=== PATIENT | male | born 1950 | race Caucasian/White ===

== ENCOUNTER 2024-03-25 22:26 | Emergency (ER) | payer MEDICARE ==
[~2024-03-25] VITALS: Ht 172.7 cm; Wt 76.0 kg
[2024-03-25 22:32] VITALS: TEMP 98.4; O2SAT 98
[2024-03-25] MEDS: OXYMETAZOLINE HCL NASAL SPRAY 15ML BOTHNSTRLS STA (23:02)
[2024-03-25] MEDS: SODIUM CHLORIDE 0.9% 1,000 ML IV ONE (23:03)
[2024-03-25 23:24] LABS: CHLORIDE 106 mEq/L (98-107); SODIUM 141 mEq/L (136-145)
[2024-03-25] MEDS: LIDOCAINE HCL/EPINEPHRINE 1%-EPI 1:100,000 20ML VIAL INFIL NR (23:24)
[2024-03-25] MEDS: TRANEXAMIC ACID 1,000MG/10ML TP ONE (23:24)
[2024-03-25 23:25] LABS: BASOPHILS % 0.7 % (0.0-2.0); CALCIUM 9.5 mg/dL (8.7-10.4); CARBON DIOXIDE 26 mEq/L (21-32); EOSINOPHILS % 2.1 % (0.0-5.0); HEMATOCRIT. 37.2 % (42.0-52.0); HEMOGLOBIN. 12.9 g/dL (14.0-18.0); LYMPHOCYTES % 34.5 % (20.0-50.0); MEAN CORPUSCULAR HEMOGLOBIN 30.6 pg (28.0-32.0); MEAN CORPUSCULAR HGB CONC 34.8 g/dL (31.0-37.0); MEAN CORPUSCULAR VOLUME 88.1 fL (80.0-94.0); MEAN PLATELET VOLUME 7.5 fl (7.4-10.4); MONOCYTES % 7.5 % (2.0-8.0); NEUTROPHILS % 55.2 % (40.0-76.0); PLATELET 309 x1000/uL (130-400); RED BLOOD CELL COUNT 4.22 mill/uL (4.7-6.1); RED CELL DISTRIBUTION WIDTH 12.9 % (11.6-14.6); WHITE BLOOD COUNT 6.5 x1000/uL (4.5-11.0)
[2024-03-25 23:29] LABS: INR 0.9; PARTIAL THROMBOPLASTIN TIME 24.1 sec (23.4-31.0); PROTHROMBIN TIME 10.3 sec (9.6-11.0)
[2024-03-25 23:30] LABS: CREATININE 0.9 mg/dL (0.6-1.3); GLUCOSE 124 mg/dL (70-105); UREA NITROGEN BLOOD 23 mg/dL (9-23)
[2024-03-26 01:40] VITALS: BP 168/99; PULSE 94; RESP 8; O2SAT 96
[2024-03-26] MEDS: ACETAMINOPHEN 325MG TABLET PO ONE (01:43)
== END 2024-03-26 01:43 | disposition home or self-care (01) ==
LOC: ER 22:26
DX: R04.0 Epistaxis (principal); I10 Essential (primary) hypertension; R51.9 Headache, unspecified
CPT/HCPCS: 99291; 70450; 80048; 85025; 85610; 85730; 36415; 70486; 30901; J3490; J7030

== ENCOUNTER 2025-03-26 16:33 | Emergency (ER) | payer MEDICARE, MEDICAID ==
[~2025-03-26] VITALS: Ht 175.3 cm; Wt 80.0 kg
[2025-03-26 16:35] VITALS: TEMP 98.3; O2SAT 100
[2025-03-26 17:32] LABS: BASOPHILS % 0.4 % (0.0-2.0); EOSINOPHILS % 0.8 % (0.0-5.0); HEMATOCRIT. 35.5 % (42.0-52.0); HEMOGLOBIN. 12.0 g/dL (14.0-18.0); LYMPHOCYTES % 28.5 % (20.0-50.0); MEAN PLATELET VOLUME 6.6 fl (7.4-10.4); MONOCYTES % 4.8 % (2.0-8.0); NEUTROPHILS % 65.5 % (40.0-76.0); PLATELET 324 x1000/uL (130-400); RED BLOOD CELL COUNT 3.84 mill/uL (4.7-6.1); RED CELL DISTRIBUTION WIDTH 15.7 % (11.6-14.6)
[2025-03-26] MEDS: ONDANSETRON HCL 4MG/2ML INJ IV ONE (17:36)
[2025-03-26] MEDS: LEVETIRACETAM 1000MG PREMIX 100 ML IV ONE (17:36)
[2025-03-26 17:42] LABS: INR 1.0
[2025-03-26 17:46] LABS: CREATININE 1.2 mg/dL (0.6-1.3); ETHANOL BLOOD < 10 mg/dL (<10); UREA NITROGEN BLOOD 19 mg/dL (9-23)
[2025-03-26 17:47] LABS: PROTEIN TOTAL 6.1 g/dL (6.0-8.3); TROPONIN I HIGH SENSITIVITY 4 ng/L (3.0-53)
[2025-03-26 17:48] LABS: ASPARTATE AMINOTRANSFERASE 15 IU/L (<34); BILIRUBIN DIRECT < 0.1 mg/dL (<=3.0); BILIRUBIN TOTAL 0.3 mg/dL (0.1-1.0)
[2025-03-26 18:05] LABS: CLARITY URINE CLOUDY (CLEAR); COLOR URINE YELLOW (YELLOW); GLUCOSE URINE NEGATIVE (NEGATIVE); KETONES URINE TRACE (NEGATIVE); LEUKOCYTE ESTERASE URINE NEGATIVE (NEGATIVE); NITRITE URINE NEGATIVE (NEGATIVE); OCCULT BLOOD URINE NEGATIVE (NEGATIVE); PH URINE 5.5 (4.5-8.0); PROTEIN URINE TRACE (NEGATIVE); SPECIFIC GRAVITY URINE 1.024 (1.005-1.030); UROBILINOGEN URINE 0.2 E.U./dL (0.2-1.0)
[2025-03-26 18:14] LABS: *AMPHETAMINES SCREEN URINE NEGATIVE (NEGATIVE); *BARBITURATES SCREEN URINE NEGATIVE (NEGATIVE); *BENZODIAZEPINES SCREEN URINE NEGATIVE (NEGATIVE); *COCAINE SCREEN URINE NEGATIVE (NEGATIVE)
[2025-03-26 18:15] LABS: CANNABINOID URINE SCREEN NEGATIVE (NEGATIVE); ECSTASY MDMA SCREEN URINE NEGATIVE (NEGATIVE); METHADONE URINE SCREEN NEGATIVE (NEGATIVE); OPIATES URINE SCREEN NEGATIVE (NEGATIVE); PHENCYCLIDINE URINE SCREEN NEGATIVE (NEGATIVE)
[2025-03-26 18:23] LABS: BACTERIA URINE NONE SEEN; RBC URINE NONE SEEN /hpf (0-2); SQUAMOUS EPITHELIAL CELL URINE FEW /lpf (RARE/1+); WBC URINE NONE SEEN /hpf (0-2)
[2025-03-26 18:24] LABS: CALCIUM OXALATE CRYSTALS URINE 3+ /lpf
[2025-03-26 20:01] VITALS: BP 129/81; PULSE 71; RESP 15; O2SAT 96
[2025-03-26] MEDS ORDERED: IOHEXOL-350 100 ML BOTTLE ONE (23:32)
== END 2025-03-26 20:19 | disposition home or self-care (01) ==
LOC: ER 16:33 → EDBEDREQTM 19:30 → EDBEDREQ 19:30 → ER 20:19 → CMPBEDREQ 21:41
DX: G40.901 Epilepsy, unspecified, not intractable, with status epilepticus (principal); I10 Essential (primary) hypertension; Z79.899 Other long term (current) drug therapy; Z98.890 Other specified postprocedural states
CPT/HCPCS: 80076; 80305; 80048; 81003; 80320; 83735; 85025; 85610; 85730; 86850; 86900; 86901; 84484; 36415; 70496; 70498; 70450; 93005; 96365; 96366; 96375; 99285; Q9967; J1953; J2405; A4606; G0480